=== PATIENT | female | born 1955 | race Caucasian/White ===

== ENCOUNTER 2017-03-25 12:08 | Outpatient (CLI) | payer BC ==
--- NOTE | 2017-03-25 13:14 | RAD ---
PA AND LATERAL VIEWS CHEST: HISTORY: Preoperative exam. FINDINGS: the heart size is normal. The lungs are well expanded without focal areas of consolidation, pneumoth orax, or pleural effusions. No acute osseous abnormalities are seen. IMPRESSION: No radiographic evidence of acute cardiopulmonary process. POS: [facility]
== END 2017-03-25 12:09 | disposition home or self-care (01) ==
LOC: NAV RAD 12:08
DX: Z01.818 Encounter for other preprocedural examination (principal); E66.09 Other obesity due to excess calories; M16.7 Other unilateral secondary osteoarthritis of hip
CPT/HCPCS: 71046

== ENCOUNTER 2017-04-04 06:06 | Emergency (ER) | payer BC ==
[2017-04-04] MEDS ORDERED: Sodium Chloride 0.9% 1,000 ML ONE ×2 (06:48→07:59)
[2017-04-04] MEDS ORDERED: diphenhydrAMINE 50 MG/ML VIAL ONE (06:48)
[2017-04-04] MEDS ORDERED: Metoclopramide HCl 10 MG/2 ML VIAL ONE ×2 (06:48→07:59)
[2017-04-04] MEDS ORDERED: Ketorolac Tromethamine 60 MG/2 ML VIAL ONE (06:48)
[2017-04-04 07:12] LABS: #Basophils 0.1 thou/uL (0.0-0.2); #Eosinphils 0.1 thou/uL (0.0-0.7); #Monocytes 0.5 thou/uL (0.11-0.59); #Neutrophils 7.1 thou/uL (1.40-6.50); %Eosinophils 0.9 % (0.0-10.0); %Lymphocytes 11.9 % (21.0-51.0); %Monocytes 5.3 % (0.0-10.0); %Neutrophils 80.9 % (42.0-75.0); Hemoglobin 13.4 g/dL (12.0-16.0); Mean Corpuscular HGB CONC 32.5 g/dL (32.0-36.0); Mean Corpuscular Hemoglobin 29.3 pg (27.0-31.0); Mean Corpuscular Volume 89.9 fl (81.0-99.0); Mean Platelet Volume 8.4 fL (7.4-10.4); Platelet Count 282 thou/uL (130-400); RBC Distribution Width 11.5 % (11.5-14.5); Red Blood Cell (RBC) Count 4.59 mill/uL (4.20-5.40); White Blood Cell (WBC) Count 8.8 thou/uL (4.8-10.8)
[2017-04-04 07:19] LABS: Anion Gap 24 mmol/L (10-20); BUN (Urea Nitrogen) 7 mg/dL (9.8-20.1); Calc. Creatinine Clearance 0 mL/min (70-130); Calcium 9.3 mg/dL (7.8-10.44); Carbon Dioxide 16 mmol/L (22-29); Chloride 102 mmol/L (98-107); Estimated GFR-MDRD 87; Glucose 104 mg/dL (70-105); Potassium 3.6 mmol/L (3.5-5.1); Sodium 138 mmol/L (136-145)
[2017-04-04] MEDS ORDERED: Magnesium Sulfate 2 GM/NS 0.9% 50 ML BAG ONE (07:58)
[2017-04-04] MEDS ORDERED: methylPREDNISolone Sod Succ/PF 125 MG/2 ML VIAL ONE (07:58)
== END 2017-04-04 09:08 | disposition home or self-care (01) ==
LOC: NAV ERS 06:06
DX: R51 Headache (principal); R11.2 Nausea with vomiting, unspecified; F41.9 Anxiety disorder, unspecified
CPT/HCPCS: 80048; 85025; 96361; 96365; 96372; 96375; 96376; 99284; J1200; J1885; J2765; J2930; J3475; J7050

== ENCOUNTER 2017-05-09 19:40 | Emergency (ER) | payer BC ==
[2017-05-09 20:25] LABS: #Basophils 0.1 thou/uL (0.0-0.2); #Eosinphils 0.2 thou/uL (0.0-0.7); #Lymphocytes 1.7 thou/uL (1.20-3.40); #Monocytes 0.6 thou/uL (0.11-0.59); #Neutrophils 4.5 thou/uL (1.40-6.50); %Basophils 1.7 % (0.0-1.0); %Eosinophils 2.3 % (0.0-10.0); %Lymphocytes 24.4 % (21.0-51.0); %Monocytes 8.9 % (0.0-10.0); %Neutrophils 62.7 % (42.0-75.0); Hemoglobin 13.3 g/dL (12.0-16.0); Mean Corpuscular HGB CONC 32.2 g/dL (32.0-36.0); Mean Corpuscular Hemoglobin 29.2 pg (27.0-31.0); Mean Corpuscular Volume 90.7 fl (81.0-99.0); Mean Platelet Volume 7.4 fL (7.4-10.4); PTT 23.2 SEC (22.9-36.1); Platelet Count 481 thou/uL (130-400); Prothrombin Time 13.5 SEC (12.0-14.7); RBC Distribution Width 11.9 % (11.5-14.5); Red Blood Cell (RBC) Count 4.54 mill/uL (4.20-5.40); White Blood Cell (WBC) Count 7.1 thou/uL (4.8-10.8)
[2017-05-09 20:32] LABS: ALT (SGPT) 31 U/L (8-55); AST (SGOT) 34 U/L (5-34); Alkaline Phosphatase 198 U/L (40-150); Anion Gap 21 mmol/L (10-20); BUN (Urea Nitrogen) 12 mg/dL (9.8-20.1); Bilirubin, Total 0.3 mg/dL (0.2-1.2); Calc. Creatinine Clearance 0 mL/min (70-130); Calcium 10.2 mg/dL (7.8-10.44); Carbon Dioxide 22 mmol/L (22-29); Chloride 99 mmol/L (98-107); Estimated GFR-MDRD 74; Glucose 91 mg/dL (70-105); Potassium 4.2 mmol/L (3.5-5.1); Sodium 138 mmol/L (136-145)
[2017-05-09 20:34] LABS: CKMB 0.3 ng/mL (0-6.6); Troponin I Less than 0.010 ng/mL (< 0.028)
--- NOTE | 2017-05-09 20:53 | CT ---
HEAD CT WITHOUT CONTRAST: 05/09/17 COMPARISON: None. HISTORY: Periods of aphasia. TECHNIQUE: Serial axial CT imaging at 5 mm intervals from vertex through skull base without contrast. FINDINGS: The visualized paranasal sinuses and mastoid air cells are well aerated. There is no displaced calvar ial fracture. There is multifocal periventricular, deep, and subcortical white matter hypodensity, ev idence of small vessel disease. No intracranial hemorrhage, midline shift, or mass effect noted. IMPRESSION: Small vessel disease. No intracranial hemorrhage. If there is clinical concern for acute infarction, brain MRI advised. POS: [facility]
== END 2017-05-09 20:57 | disposition short-term general hospital (02) ==
LOC: NAV ERS 19:40
DX: G45.9 Transient cerebral ischemic attack, unspecified (principal); F41.9 Anxiety disorder, unspecified; Z79.891 Long term (current) use of opiate analgesic
CPT/HCPCS: 36416; 70450; 80053; 82553; 84484; 85025; 85610; 85730; 93005; 94760

== ENCOUNTER 2017-09-02 15:46 | Emergency (ER) | payer OTHER, SELFPAY ==
[~2017-09-02 15:46] MED LIST: Iopamidol 370 76% 100 ML VIAL ONE
[2017-09-02 16:32] LABS: #Basophils 0.1 thou/uL (0.0-0.2); #Eosinphils 0.2 thou/uL (0.0-0.7); #Lymphocytes 1.1 thou/uL (1.20-3.40); #Monocytes 0.6 thou/uL (0.11-0.59); #Neutrophils 6.7 thou/uL (1.40-6.50); %Basophils 1.1 % (0.0-1.0); %Eosinophils 1.8 % (0.0-10.0); %Lymphocytes 13.1 % (21.0-51.0); %Monocytes 6.9 % (0.0-10.0); Hemoglobin 13.9 g/dL (12.0-16.0); Mean Corpuscular Hemoglobin 28.2 pg (27.0-31.0); Mean Corpuscular Volume 90.9 fL (78.0-98.0); Mean Platelet Volume 6.4 fL (7.4-10.4); Platelet Count 333 thou/uL (130-400); RBC Distribution Width 13.3 % (11.5-14.5); Red Blood Cell (RBC) Count 4.91 mill/uL (4.20-5.40); White Blood Cell (WBC) Count 8.6 thou/uL (4.8-10.8)
[2017-09-02 16:43] LABS: PTT 26.4 SEC (22.9-36.1); Prothrombin Time 12.9 SEC (12.0-14.7)
[2017-09-02 16:49] LABS: ALT (SGPT) 25 U/L (8-55); AST (SGOT) 22 U/L (5-34); Albumin 4.3 g/dL (3.5-5.0); Alkaline Phosphatase 92 U/L (40-150); Anion Gap 18 mmol/L (10-20); BUN (Urea Nitrogen) 15 mg/dL (9.8-20.1); Bilirubin, Total 0.4 mg/dL (0.2-1.2); Calc. Creatinine Clearance 0 mL/min (70-130); Calcium 10.3 mg/dL (7.8-10.44); Carbon Dioxide 20 mmol/L (22-29); Chloride 106 mmol/L (98-107); Estimated GFR-MDRD 82; Globulin 2.9 g/dL (2.4-3.5); Glucose 91 mg/dL (70-105); Potassium 3.7 mmol/L (3.5-5.1); Protein, Total 7.2 g/dL (6.0-8.3); Sodium 140 mmol/L (136-145)
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
[2017-09-02] MEDS ORDERED: Ondansetron ODT 4 MG TAB ONE (17:38)
[2017-09-02] MEDS ORDERED: Cyclobenzaprine 10 MG TAB ONE (17:43)
[2017-09-02] MEDS ORDERED: traMADol HCl 50 MG TAB ONE (17:43)
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
== END 2017-09-02 17:51 | disposition home or self-care (01) ==
LOC: NAV ERS 15:46
DX: S06.0X0A Concussion without loss of consciousness, initial encounter (principal); S16.1XXA Strain of muscle, fascia and tendon at neck level, initial encounter; S29.012A Strain of muscle and tendon of back wall of thorax, initial encounter; K57.90 Diverticulosis of intestine, part unspecified, without perforation or abscess without bleeding; R59.9 Enlarged lymph nodes, unspecified; E78.5 Hyperlipidemia, unspecified; I10 Essential (primary) hypertension; F41.9 Anxiety disorder, unspecified; Z79.82 Long term (current) use of aspirin; Z79.899 Other long term (current) drug therapy; V43.62XA Car passenger injured in collision with other type car in traffic accident, initial encounter
CPT/HCPCS: 70450; 71260; 72125; 74177; 80053; 85025; 85610; 85730; Q0162

== ENCOUNTER 2017-10-26 15:49 | Outpatient (CLI) | payer OTHER ==
--- NOTE | 2017-10-26 16:24 | RAD ---
RADIOGRAPH LEFT HIP TWO VIEWS: HISTORY: A 61-year-old female with left hip pain. Evaluate osteoarthritis. FINDINGS: There is bony hypertrophy of the acetabular roof, with sclerosis and subchondral cyst formation. The hip joint space is maintained. The femoral head contour is maintained. No subcapital osteophytes. No fracture or dislocation. 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 POS: [facility]
== END 2017-10-26 15:50 | disposition home or self-care (01) ==
LOC: NAV RAD 15:49
PROVIDERS: ATTEND Family Medicine
DX: Z02.71 Encounter for disability determination (principal); M15.9 Polyosteoarthritis, unspecified